=== PATIENT | female | born 1980 | race Caucasian/White ===

== ENCOUNTER 2021-10-20 05:50 | Observation (INO) | payer OTHER ==
[~2021-10-20] VITALS: Ht 167.6 cm; Wt 104.3 kg
--- NOTE | ~2021-10-20 | OP ---
[address] [address] OPERATIVE REPORT Name: PHIL JOHNSON Room: [address] Marga Tilley#: [id number] Admission: 10/20/21 Attend Phys: Abdias Concepcion Discharge: Date of : 84 Report #: [id number] THIS REPORT FOR: cc: KAYLIE CARDENAS NP, AMY NP Moreno, Kiersten M. MD ~ DATE OF SURGERY: 10/20/2021 PREOPERATIVE DIAGNOSIS: Pelvic pain. POSTOPERATIVE DIAGNOSIS: Pelvic pain. PROCEDURES: Robotic-assisted total laparoscopic hysterectomy and right salpingectomy with extensive lysis of adhesions for greater than 30 minutes, cystoscopy. ANESTHESIA: General. SURGEON: Diandra Sánchez MD ASSISTANTS: None. ESTIMATED BLOOD LOSS: 350 mL. SPECIMENS: Uterus, cervix and right fallopian tube sent to pathology. COMPLICATIONS: None. DISPOSITION: The patient is stable in PACU with plan for discharge home. INDICATIONS: This is a 41-year-old P3 female with a history of x 3, who had significant pelvic pain and menorrhagia. She had failed medical management and desired definitive intervention. Risks, benefits and alternatives were discussed on multiple occasions and consents were signed. DESCRIPTION OF PROCEDURE: The patient was taken to the operating room with IV fluids running and SCDs were placed on bilateral lower extremities. General anesthesia was obtained without difficulty. She was placed in dorsal lithotomy position and prepped and draped in normal sterile fashion. Timeout was performed. Lancaster catheter was inserted into the bladder. Speculum was placed into the vagina and the anterior lip of the cervix was grasped with a single tooth tenaculum. The uterus was sounded to 10 cm. The cervix was dilated to accommodate a medium VCare manipulator, which was introduced into the uterus, insufflated and next MIKAELA cup was secured around the cervix. My gloves were then changed and attention was placed to the anterior abdominal cavity. Veress needle was inserted into the umbilicus. Abdomen [place] [id number] OPERATIVE REPORT Name: JOHNSONPHIL Room: [address] Marga Tilley#: [id number] Admission: 10/20/21 Attend Phys: Abdias Concepcion Discharge: Date of : 84 Report #: [id number] of 15 mmHg of CO2 gas. An incision was made superior to the umbilicus after injecting local lidocaine and an 8 mm robotic port was introduced. The camera was inserted. Absence of any injury was noted. There were adhesions of the omentum to the abdominal wall. Right and left robotic ports were placed under direct visualization and a 10 mm AirSeal port was placed in the left upper quadrant. The robot was docked to the patient. I did not have good movement of the right arm to dissect the omental adhesions, thus I inserted a LigaSure cautery device and dissected off the omental adhesions from the anterior abdominal wall. I then turned my attention to the robotic console. The uterus was completely adherent to the anterior abdominal wall with omental adhesions to the uterus as well. There was absence of any obvious round ligament or structures on the left side that were identifiable. There was no left fallopian tube fragment noticed; however, there was a right fimbriated portion of the fallopian tube noted on the right side. The left uteroovarian ligaments were cauterized and ligated. Anteriorly, the adhesions of the uterus to the anterior abdominal wall was transected with the monopolar cautery device. The right round ligament was transected. This was further dissected down to the uterine ligaments. However, due to the distortion of the anatomy, bladder flap was attempted to be created. We further dissected the anterior portion of the uterus until it was freed from the anterior abdominal wall. I was able to find some areolar tissue anteriorly to help push the bladder away. The left broad ligament was also cauterized and transected down to the left uterine ligaments. I was able to identify the MIKAELA cup on the left side and allow for that cardinal ligament to fall away and further transected and cauterized the right uterine ligaments, allowing for the cardinal ligaments to fall away. The colpotomy was begun on the right side and made in a circumferential fashion. The uterus was delivered through the vagina. The colpotomy was closed with 2-0 Vicryl V-Loc suture in a running continuous fashion. Hemostasis was noted. The abdomen was irrigated with normal saline. I then performed a cystoscopy to ensure absence of any bladder injury. The bladder insufflated well. The ureters were seen peristalsing very well. The cystoscope was removed from the bladder. Fluid was left behind in the bladder and instruments were then removed from the abdomen. The robot was undocked. The abdomen was desufflated of all CO2 gas. The port sites were closed with 4-0 Monocryl in a subcuticular stitch. Surgical glue was placed over the incisions. The patient was then awoken and taken to the recovery room in stable condition. By: [id number] Sánchez MD /nt
[~2021-10-20 05:50] MED LIST: CELEXA 10 MG TA10 M1 PO; IBUPROFEN 600600 M1 PO; PERCOCET 5-3251 EACH PO; SLOW FE 160MG160 MG PO; TUMS300 MG PO; VITAMIN D-40010 MCG PO
[2021-10-20 07:26] LABS: HEMATOCRIT 39.9 % (37.0-47.0); HEMOGLOBIN 13.3 gm/dL (12.0-15.0); MCH 30.1 pg (26.0-34.0); MCHC 33.5 g/dL (28.0-37.0); MPV 6.9 fl. (7.2-11.1); RBC 4.43 mil/uL (4.20-5.00); RDW-CV 13.1 % (10.5-14.5); WBC 7.5 thou/uL (4.0-11.0)
--- NOTE | 2021-10-23 13:08 | PATH ---
[address] [address] PATHOLOGY RPT PROCEDURE Name: PHIL JOHNSON Room: [address] Marga Tilley#: [id number] Admission: 10/20/21 Date of : 84 Discharge: 10/20/21 Report #: [id number] Path Case #: [id number] [facility] Accession Number: [id number] . 01 Material submitted: . uterus - UTERUS, CERVIX, RIGHT FALLOPIAN TUBE . 01 Clinical history: . ROBOTIC TOTAL HYSTERECTOMY PELVIC PAIN, HX OF ENDOMETRIOSIS . 02 Diagnosis: Uterus, cervix, right fallopian tube: 89 gram uterus (including cervix and without bilateral adnexa) with - Myometrium: Severe disruption of anterior serosal surface. - Endometrium: Proliferative pattern, negative for hyperplasia and atypia. - Cervix: Immature squamous metaplasia, negative for high-grade squamous intraepithelial lesion. - Right fimbriated fallopian tube (1 gram): Negative for malignancy. (ROD:pit; 10/22/2021) QTP 10/22/2021 1203 Local . 02 Electronically signed: . Vega Goodman MD, Pathologist NPI- [id number] . 01 Gross description: . Fixative: Formalin Labeled: Uterus, cervix, right fallopian tube Specimen received: Uterus with attached cervix and detached fallopian tube Uterus weight: 89 g Uterus: 9.2 x 5.2 x 3.9 cm Serosa: Pale mesa and smooth with severe surface disruption on the anterior aspect Ectocervix: Pale mesa, smooth (with only a slight amount identified on the anterior aspect) Cervical os: Slit-like, measuring 0.9 cm Endocervical canal: 3.5 cm Endometrial cavity: 4.8 x 2.4 cm Endometrium: Pale mesa, glistening to slightly hemorrhagic Endometrial thickness: 0.1 cm Myometrium: Mesa-pink, trabeculated Myometrium thickness: Up to 2.0 cm Lesions/abnormalities: None identified Right fallopian tube: 1 g, fimbriated; 1.4 cm in length, 0.5 cm in diameter Right fallopian tube cut surface: [place] [address] PATHOLOGY RPT PROCEDURE Name: JOHNSONPHIL KEVIN Room: [address] M.R.#: [id number] Admission: 10/20/21 Date of : 84 Discharge: 10/20/21 Report #: [id number] Path Case #: [id number] . [employer] sections are submitted as follows: A1 12:00 cervix A2 6:00 cervix A3 architectural representative sections of disrupted serosa A4 anterior endomyometrium A5 posterior endomyometrium A6 entire right fallopian tube (CAA; 10/21/2021) QAC/QA 10/22/2021 1201 Local . 02 Pathologist provided ICD-10: N87.9, R10.2 . 02 CPT . 098285 Specimen Comment: A courtesy copy of this report has been sent to [phone] Specimen Comment: [id number] Specimen Comment: Report sent to AND DR CARDENAS Specimen Comment: A duplicate report has been generated due to demographic updates. Performed at: [address] [place] [id number] [facility] [address], [place] [id number] MD Giuseppe Sood MD Phone: [phone] Performed at: 02 [facility] [address], [place], [place] [id number] MD Vega Goodman MD Phone: [phone]
== END 2021-10-20 12:15 | disposition home or self-care (01) ==
LOC: M.PRE 05:50 → M.TBA 06:10 → M.PRE 07:16 → M.TBA 12:15 → M.PRE 15:34
PROVIDERS: ADMIT Obstetrics & Gynecology; ATTEND Obstetrics & Gynecology
DX: N92.0 Excessive and frequent menstruation with regular cycle (principal); Z20.822 Contact with and (suspected) exposure to COVID-19; N80.9 Endometriosis, unspecified; Z79.899 Other long term (current) drug therapy